=== PATIENT | male | born 1990 | race African-American/Black ===

== ENCOUNTER 2016-09-11 00:53 | Emergency (ER) | payer MEDICAID, OTHER ==
[2016-09-11 01:08] VITALS: TEMP 97.8; BMI 22.8
[2016-09-11] MEDS ORDERED: IBUPROFEN 800 MG TAB PO ONE (01:12)
--- NOTE | 2016-09-11 01:12 | EDPRACDOC ---
- General Information Chief Complaint: Rib Pain Stated Complaint: RIB PAIN Time Seen by Provider: 09/11/16 01:07 Mode of Arrival: Car Home Medications: Home Medications Ibuprofen Tablet [Motrin] 800 mg PO TID PRN #30 tab 09/11/16 Allergies/Adverse Reactions: Allergies Allergy/AdvReac Type Severity Reaction Status Date / Time No Known Allergies Allergy Verified 09/11/16 01:06 - History of Present Illness Onset: 8pm HPI: PT STATES HE WAS IN A BOXING MATCH TONIGHT, TOOK SEVERAL BLOWS TO THE RIGHT RIBS , COMPLAINS OF SHARP, STABBING PAIN TO RIGHT LATERAL RIBS SINCE, STATES PAIN IS WORSE WITH DEEP BREATH AND COUGH, HAS NOT TAKEN ANY MEDS FOR SAME. Chest Wall Injury Location: Reports: Lateral Context: Reports: Blunt Trauma, Sporting Pain Quality: Reports: Sharp, Stabbing Pain Severity: Reports: Moderate Pain Worsens With: Reports: Coughing, Breathing Shortness of Breath: None Associated Signs and Symptoms: Reports: None ED Past Medical History - History Reviewed Yes Nurses notes reviewed and agree except as marked - Patient Medical History Respiratory History: Reports: Asthma Psychological History: Denies: Depression - Social Medical History Smoking Status: Heavy tobacco smoker (5 or more cigarettes/day or daily pipe/ cigar) Social History: Reports: Marijuana Use EDM Review of Systems - Review of Systems Respiratory: negative: Cough, Shortness of Breath, Wheezing Cardiovascular: negative: Chest Pain, Palpitations Gastrointestinal: negative: Nausea, Vomiting Musculoskeletal: Ribs Integumentary: No Symptoms Reported - Physical Exam Constitutional: Alert (Awake), No apparent distress Oriented to: Time, Person, Place Last recorded Vital Signs: Last Vital Signs Temp 97.8 F 09/11/16 01:07 Pulse 63 09/11/16 01:07 Resp 18 09/11/16 01:07 BP 145/74 09/11/16 01:07 Pulse Ox 99 09/11/16 01:07 Oxygen Pulse Oxygen Saturation 99 O2 Device Room Air Oxygen Flow Rate Fraction of Inspired Oxygen ( FIO2) - HEENT Head: Normal ( normocephalic) - Respiratory/Cardiovascular Respiratory: Normal - CTA (BBS clear to auscultation without adventitious sounds ) Cardiovascular: Normal (RRR without murmur, gallop or rub) - Integumentary Skin: Normal, Warm, Dry Lymphatics: Normal (no adenopathy) - Neurologic Memory Impaired: Normal Motor Function: Normal (Normal tone, Pulses 2+ No cyanosis or edema, FROM) Cranial Nerve: Normal (CN II-X11 intact sensation, strength 5/5) Cerebellar: Normal Mood Description: Normal Perception: Normal ED Chest Wall Pain Exam - Chest Wall Pain Chest: Tender. negative: Swelling, Ecchymosis, Deformity, Flail, Crepitance, SQ Emphysema - Differential Diagnosis Chest Wall Contusion, Pneumothorax, Rib Fracture - Diagnostic Imaging RIGHT RIBS W CXR Image interpreted by: Radiologist RIGHT RIBS AND CHEST - 3+ VIEW COMPARISON: Chest 04/24/2015 FINDINGS: Normal heart size and pulmonary vascularity. No focal airspace disease or consolidation in the lungs. No blunting of costophrenic angles. No pneumothorax. Mediastinal contours appear intact. Right ribs appear intact. No acute displaced fractures or focal bone lesions identified. IMPRESSION: No evidence of active pulmonary disease. Negative right ribs. Decision Time to Discharge: 01:53 - Departure Disposition: Home Condition: Stable Final Diagnosis: Chest wall pain Instructions: Chest Wall Pain Education/Counseling Given To: Patient Education/Counseling Given Regarding: Diagnosis, Treatment, Prognosis, Follow Up Referrals: Deangelo Mendez MD [Primary Care Provider] - One Week Prescriptions: New Ibuprofen Tablet [Motrin] 800 mg PO TID PRN #30 tab PRN Reason: Pain Discontinued Oxycodone Immediate Release [Oxycodone Immediate Release (OxyIR)] 5 mg PO Q4H PRN #14 tab PRN Reason: Pain Sulfamethoxazole/Trimethoprim [Bactrim Ds Tablet] 1 tab PO BID #20 tab Additional Instructions: APPLY WARM COMPRESSES TO AFFECTED AREA 20 MINS AT A TIME 4 - 5 TIMES DAILY NEEDED FOR PAIN.
--- NOTE | 2016-09-11 01:49 | DIRPT ---
CLINICAL DATA: Sharp stabbing pain to the right lateral ribs since a boxing maps tonight. Pain is worse with deep breath and cough. EXAM: RIGHT RIBS AND CHEST - 3+ VIEW COMPARISON: Chest 04/24/2015 FINDINGS: Normal heart size and pulmonary vascularity. No focal airspace disease or consolidation in the lungs. No blunting of costophrenic angles. No pneumothorax. Mediastinal contours appear intact. Right ribs appear intact. No acute displaced fractures or focal bone lesions identified. IMPRESSION: No evidence of active pulmonary disease. Negative right ribs. Electronically Signed By: Landry Martinez M.D. On: 09/11/2016 01:47
[2016-09-11 02:13] VITALS: BP 136/72; PULSE 62
== END 2016-09-11 02:10 | disposition home or self-care (01) ==
LOC: ED 00:53
DX: R07.89 Other chest pain (principal)
CPT/HCPCS: 71101; 99282; J3490